=== PATIENT | female | born 1985 | race Caucasian/White ===

== ENCOUNTER 2018-10-20 10:07 | Outpatient (CLI) | payer BC ==
[2018-10-20 17:54] LABS: MUDS CUTOFF CONCENTRATIONS CUTOFF CONC BELOW:
[2018-10-20 18:10] LABS: AMPHETAMINE SCREEN,URINE NEGATIVE (NEGATIVE); BENZODIAZEPINES SCREEN, URINE NEGATIVE (NEGATIVE); COCAINE SCREEN URINE NEGATIVE (NEGATIVE); METHADONE SCREEN, URINE NEGATIVE (NEGATIVE); METHAMPHETAMINES SCREEN, URINE NEGATIVE (NEGATIVE); OPIATE SCREEN, URINE NEGATIVE (NEGATIVE); OXYCODONE SCREEN, URINE NEGATIVE (NEGATIVE); PROPOXYPHENE SCREEN, URINE NEGATIVE (NEGATIVE); TRICYCLIC ANTIDEPRESSANT,URINE NEGATIVE (NEGATIVE)
== END 2018-10-20 10:08 | disposition home or self-care (01) ==
LOC: LAB.R 10:07
PROVIDERS: ATTEND Registered Nurse
DX: Z33.1 Pregnant state, incidental (principal)
CPT/HCPCS: 80306

== ENCOUNTER 2018-10-20 10:53 | Outpatient (CLI) | payer BC ==
[2018-10-20 12:31] LABS: HGB - HEMOGLOBIN 12.1 g/dL (12.0-16.0); MEAN CORPUSCULAR HGB CONC 35.3 g/dL (32.0-36.0); MEAN CORPUSCULAR VOLUME 87.7 fL (81.0-99.0); RED BLOOD COUNT 3.89 10^6/uL (4.20-5.40); RED CELL DISTRIBUTION WIDTH 12.9 % (12.0-15.0); WHITE BLOOD COUNT 6.2 x10^3/uL (4.8-10.8)
[2018-10-21 11:16] LABS: HEPATITIS C ANTIBODY NON-REACTIVE (NON-REACTIVE)
== END 2018-10-20 10:54 | disposition home or self-care (01) ==
LOC: LAB 10:53
PROVIDERS: ATTEND Registered Nurse
DX: Z33.1 Pregnant state, incidental (principal)
CPT/HCPCS: 36415; 80306; 82950; 85027; 86803; 86850

== ENCOUNTER 2018-11-13 14:16 | Outpatient (CLI) | payer BC ==
--- NOTE | 2018-11-14 15:33 | Ultrasound Report ---
Reason: Procedure Date: 11/13/2018 Accession Number: [id number] / [id number] Procedure: US - OB Detailed Eval CPT Code: FULL RESULT: EXAM: COMPLETE OBSTETRICAL ULTRASOUND EXAM DATE: 11/13/2018 04:05 PM. CLINICAL HISTORY: anatomic survey. COMPARISON: None. TECHNIQUE: Real-time sonographic evaluation of the fetus performed by the director of diagnostic imaging. Multiple risk control field representative static images were saved for review. DATING: Established EGA 30 weeks 5 days with ASOTN 01/17/2019 based on patient's stated ASTON. EGA 32 weeks 5 days with ASTON 01/03/2019 based on the current ultrasound. GENERAL EVALUATION Darling . Cardiac activity: 126 bpm. movement: Visualized. Presentation: Cephalic. Placenta: Posterior fundal position. No evidence for previa. Umbilical cord: 3 vessel cord. Central placental cord origin. Amniotic fluid: JENN 15.8 cm, normal. MVP 4.8 cm. BIOMETRY Bi-Parietal Diameter (BPD): 8.2 cm, 32 weeks 6 days Head Circumference (HC): 30.7 cm, 34 weeks 1 day Abdominal Circumference (AC): 28.3 cm, 32 weeks 2 days Femur Length (FL): 6.2 cm, 31 weeks 6 days Estimated Weight: 1981 g, 74% percentile for 30 weeks 5 days. ANATOMY The intracranial structures, profile, face/nose/lips, spine, 4 chamber heart and outflow tracts, stomach, abdominal wall and cord insertion, diaphragm, kidneys, bladder, and extremities were visualized and demonstrate no abnormality. MATERNAL STRUCTURES Uterus: Unremarkable. Cervix: Long and closed. Transabdominal length 4.8 cm. Right ovary/adnexa: Unremarkable. Left ovary/adnexa: Unremarkable. Free fluid: None. IMPRESSION: 1. Darling live intrauterine with gestational age 30 weeks 5 days based on patient stated ASTON of 01/17/2019. 2. Estimated weight is within expected limits for assigned dating. 3. Normal anatomic survey. No anatomic abnormalities are detected at this time. RADIA ADDENDUM: 11/15/18 12:00 Corrected Impression: 1. Darling live intrauterine with gestational age 30 weeks 5 days based on patient stated ASTON of 01/17/2019. 2. Estimated weight is 1981 g, 74% for stated ASTON. 3. Normal anatomic survey. No anatomic abnormalities are detected at this time.
== END 2018-11-13 14:17 | disposition home or self-care (01) ==
LOC: DI 14:16
PROVIDERS: ATTEND Registered Nurse
DX: Z36.89 Encounter for other specified antenatal screening (principal); Z3A.30 30 weeks gestation of pregnancy
CPT/HCPCS: 76811

== ENCOUNTER 2018-12-22 08:00 | Outpatient (CLI) | payer BC | END 2018-12-22 23:59 | disposition home or self-care (01) | LOC: LAB.R 08:00 | PROVIDERS: ATTEND Nurse Practitioner Obstetrics & Gynecology | DX: Z36.85 Encounter for antenatal screening for Streptococcus B (principal); Z36.89 Encounter for other specified antenatal screening | CPT/HCPCS: 87491; 87591; 87797 ==

== ENCOUNTER 2019-01-16 12:18 | Inpatient (IN) | payer BC ==
[2019-01-16] MEDS ORDERED: SODIUM CHLORIDE FLUSH 0.9% 10 ML SYRINGE ONE (12:35)
[2019-01-16] MEDS ORDERED: ONDANSETRON 4 MG/2 ML VIAL IVP PRN (13:15)
[2019-01-16] MEDS ORDERED: SODIUM CHLORIDE FLUSH 0.9% 10 ML SYRINGE IVP PRN (13:15)
--- NOTE | 2019-01-16 13:29 | HISTORY & PHYSICAL EXAMINATION ---
Admit History - Visit Reason Visit Reason: Contractions - : 3 Parity: 2 Premature: 0 Ectopic: 0 : 0 Care: positive: [facility] Risk/History: positive: None Complications This : positive: None Smoking Status: Never smoker - Mother's Labs Mother's Blood Type: positive: O Mother's RH: positive: Positive GBS: positive: Group B Step Negative Rubella Status: positive: Immune Review of Systems - Constitutional Constitutional: denies: Fatigue, Fever, Chills, Malaise - Eyes Eyes: denies: Blurred vision, Spots in vision, Dipolpia - Cardiovascular Cariovascular: denies: Irregular heart rate, Palpitations, Chest pain, Edema - Respiratory Respiratory: denies: Cough, Sputum production, Wheezing - Gastrointestinal Gastrointestinal: denies: Abdominal pain, Constipation, Diarrhea, Change in bowel habits, Nausea, Vomiting - Genitourinary Genitourinary: denies: Dysuria - Integumentary Integumentary: denies: Rash, Pruritis - Psychiatric Psychiatric: reports: Depression, Anxiety Physical - Abdominal Exam Contraction Frequency (min/apart): 3-6 Contraction Intensity: positive: Mild Uterine Resting Tone: positive: Soft - Monitoring Strip Review: positive: Category I - Presentation Presentation: positive: Vertex - Vaginal Exam Membranes: positive: Membranes intact - Speculum Exam Speculum Exam Performed: positive: No Plan for Labor - Plan For Labor I expect patient to be DC'd or transferred within 96 hours.: Yes Plan for Labor: HPI: This 33yo @ 39.6wks gestation by 6wk U/S presented on 01/16/2019 with c/o contractions and was found to be in an early labor pattern. She reports uncomfortable uterine contractions over the past couple of days and lives in [place]. She is hoping to receive an epidural for pain management somewhat early in her process and she requests AROM for augmentation of labor. She denies VB or Lof. Reports +FM. Denies further concerns or complaints at this time. She became following displaced paragard IUD and subsequent laproscopic surgery to remove her IUD. At that time she requested BSO for sterilization. She found out she was at the end of April and her ASTON confirmed she had been at the time of her surgery. Experienced progressively worsening incontinence throughout her which is likely related to having her children so close together. She reports significant anxiety and depression s/p delivery of her other children. Sertraline declined at 28 wks - pt does desires to initiate immediately . Her has also been complicated by pubic symphyseal dysfunction for which she has been seen by physical therapist. Dating Criteria: LMP 11/01/2016 First ultrasound @ 6wks - agrees OB History: G1: 11/23/2015 viable female 41wks G2: 08/23/2017 3988 gm at 38.6wks. G3: Current PMHx: Anxiety, depression Surgical Hx: Salpingectomy 2017 Social Hx: Never smoker, no ETOH or IVDA. Joce Family Hx: Depression - mother; Heart disease maternal grandmother labs: O positive, antibody negative 1 hour GTT 88. HgbA1C 4.9, TSH 2.27 Rubella immune VDRL negative Tox NR, CT neg Hgb 13.0; Hcg 41.1 UTOX neg 28wk labs: Hgb 12.1; Hct 34.1; PLT 185 1 hour GTT 93 Hep C non-reactive 36wk labs: GBS negative GC/CT negative Immunizations: Tdap 10/20/19 Influenza 10/20/2019 Ultrasounds: Initial ultrasound at 6wks gestation c/w LMP dating 11/13/2019 FAS WNL. Posterior fundal position. No evidence of previa. 3VC. JENN WNL. Size c/w dating Physical Exam: Normocephalic, atraumatic Heart RRR w/o M/G/R Lungs CTAB Abdomen gravid, soft, and nontender. EFW 3400g FHR baseline 135, moderate variablity, + accels, no decels Contractions palpate mild every 6-9 minutes with soft resting tone. SVE 5/80/-1, posterior, soft, vertex. BOW intact upon SVE, AROM occurred at 1325 and was noted to be a moderate amount of clear fluid Bilateral LE's no edema. Mood is good. Eager to meet baby. Assessment: 33yo @ 39.6wks gestation by L=6wk U/S GBS negative Early labor AROM @ 1325 for augmentation FHT Category I Plan: Continuous monitoring Expectant management following AROM and will repeat SVE in 6 hours to ensure cervical change or sooner PRN. Epidural per maternal request and pt does desire an epidural. Anticipate spontaneous vaginal delivery.
[2019-01-16 13:46] LABS: BASOPHILS % (AUTO) 0.5 %; EOSINOPHILS # (AUTO) 0.1 10^3/uL (0.0-0.7); HGB - HEMOGLOBIN 12.7 g/dL (12.0-16.0); LYMPHOCYTES # (AUTO) 1.2 10^3/uL (1.5-3.5); MEAN CORPUSCULAR HEMOGLOBIN 29.2 pg (27.0-31.0); MEAN PLATELET VOLUME 9.1 fL (7.9-10.8); MONOCYTES # (AUTO) 0.5 10^3/uL (0.0-1.0); MONOCYTES % (AUTO) 7.9 %; NEUTROPHILS % (AUTO) 72.6 %; PLT - PLATELET COUNT 167 10^3/uL (130-450); RED BLOOD COUNT 4.36 10^6/uL (4.20-5.40); RED CELL DISTRIBUTION WIDTH 13.3 % (12.0-15.0); WHITE BLOOD COUNT 6.9 x10^3/uL (4.8-10.8)
[2019-01-16] MEDS ORDERED: OXYTOCIN/SODIUM CHLORIDE 500 ML IV SCH (14:00)
[2019-01-16] MEDS ORDERED: LIDOCAINE-MPF 1% 30 ML VIAL ONE (15:10)
[2019-01-16] MEDS ORDERED: miSOPROStol 200 MCG TABLET ONE (15:10)
[2019-01-16] MEDS ORDERED: SODIUM CHLORIDE FLUSH 0.9% 10 ML SYRINGE IVP SCH (17:00)
--- NOTE | 2019-01-16 19:06 | ANESTHESIA ---
Pre-Anesthesia VS, & Labs - Diagnosis active labor - Procedure labor epidural Height 5 ft 8 in Weight (kg) 79.379 kg - NPO Other (1730) - Is Patient ?: Yes - Lab Results Current Lab Results: Laboratory Tests 01/16/19 14:13: Blood Type O POSITIVE, Antibody Screen NEGATIVE 01/16/19 13:05: Blood Type Recheck O POSITIVE 01/16/19 13:05: WBC 6.9, RBC 4.36, Hgb 12.7, Hct 37.5, MCV 86.0, MCH 29.2, MCHC 34.0, RDW 13.3, Plt Count 167, MPV 9.1, Neut # (Auto) 5.0, Lymph # (Auto) 1.2 L, [place]win # (Auto) 0.5, Eos # (Auto) 0.1, Baso # (Auto) 0.0, Absolute Nucleated RBC 0.00, Nucleated RBC % 0.0 Fish Bones: 01/16/19 13:05 Home Medications and Allergies Active Medications Acetaminophen (Tylenol) 650 mg PO Q6H FRANKLYN Lactated Ringer's (Lr) 1,000 mls @ 150 mls/hr IV .Q6H40M FRANKLYN Oxytocin/Sodium Chloride (Pitocin/Sodium Chloride) 500 mls @ 1 mls/hr IV TITR FRANKLYN; Protocol Ondansetron HCl (Zofran Inj) 4 mg IVP Q4H PRN PRN Reason: Nausea / Vomiting Sodium Chloride (Normal Saline Flush 0.9%) 10 ml IVP PRN PRN PRN Reason: NEEDED PER PROVIDER ORDERS Sodium Chloride (Normal Saline Flush 0.9%) 10 ml IVP 0100,0900,1700 [facility] Allergies/Adverse Reactions: Allergies Allergy/AdvReac Type Severity Reaction Status Date / Time No Known Drug Allergies Allergy Verified 01/16/19 16:08 Anes History & Medical History - Anesthetic History Anesthesia Complications: reports: Post-Operative Nausea/Vomiting Family history of Anesthesia Complications: Denies Family history of Malignant Hyperthermia: Denies - Medical History Smoking Status: Never smoker - Obstetrical History : 3 Parity: 2 Events: positive: None Complications: positive: None Exam General: Alert Dental: Loose/Frag Mouth Openin Fingerbreadth Neck Mobility: Normal Mallampati classification: II Thyromental Distance: greater than 6 cm Respiratory: Lungs clear, Normal breath sounds, No respiratory distress, No accessory muscle use Cardiovascular: Regular rate, Normal S1, Normal S2, No murmurs Plan Anesthesia Type: Epidural Consent for Procedure(s) Verified and Reviewed: Yes Code Status: Attempt Resuscitation ASA classification: 2-Mild systemic disease Is this case an emergency?: No
[2019-01-16] MEDS: LACTATED RINGERS 1,000 ML IV SCH ×2 (19:11→20:16)
[2019-01-16] MEDS ORDERED: LIDOCAINE-MPF 1% 2 ML AMP SUBQ SCH (19:20)
[2019-01-16] MEDS ORDERED: LIDOCAINE 1% 2 ML VIAL SUBQ SCH (19:20)
[2019-01-16] MEDS ORDERED: fent/BUPIV 2 MCG/0.125% 250 ML EP ONE (19:49)
[2019-01-16] MEDS ORDERED: ROPIVACAINE 0.2% PF 20 ML AMPULE ONE (19:51)
[2019-01-16] MEDS: ACETAMINOPHEN 325 MG TABLET PO SCH (20:13)
--- NOTE | 2019-01-16 21:14 | DELIVERY NOTE ---
Delivery Note - Labor Labor: positive: Spontaneous, Augmented by ARM - Infant Delivery Method Delivery Method: positive: Spontaneous vaginal delivery - Presentation Presentation: positive: Vertex, ROT - right occiput transverse - Nuchal Cord Nuchal Cord: positive: None - Amniotic Fluid Description Amniotic Fluid Description: positive: Clear - Episiotomy Type Episiotomy Type: positive: None - Laceration Laceration: positive: None - Delivery Outcome Delivery Outcome: positive: Livebirth - : positive: Placed in direct skin contact with mother, Bulb syringe, Stimulated, Warmed, [place] used [place] sex: positive: Male - Cord Cord: positive: 3 vessels - Placenta Placenta: positive: Intact, Spontaneous - Estimated Blood Loss Estimated Blood Loss (in cc): 300 - Post Delivery Events Post Delivery Events: positive: No post delivery events - Delivery Comments (Free Text/Narrative) Delivery Comments (Free Text/Narrative): Labor: This 33yo @ 39.6wks gestation by L=6wk U/S presented at approximately 1200 on 01/16/2019 with c/o uncomfortable contractions. She was noted to be 5/80/-1, and vertex. Her labor was augmented with AROM which occurr ed at 1325 and was noted to be a moderate amount of clear fluid. FHR pattern demonstrated a Category I tracing throughout. Epidural per maternal request. Normal labor course. Patient experienced spontaneous urge to push at 2024 and was noted to have slight anterior lip which was easily reduced at 2025. Total first stage duration of 7 hours. Normal of viable male infant at 2041 on 01/16/2019. Total second stage duration of 16 minutes. No nuchal cord. 's 9 and 9 at 1 and 5 minutes respectively. The was placed on maternal abdomen, stimulated, dried, and placed skin to skin. Pitocin administered via IV for hemostasis. The umbilical cord was allowed to stop pulsating at which time it was doubly clamped by CNM and cut by FOB. Cord blood was obtained. Placenta delivered spontaneously and intact at 2048. 3VC. ELB 300mL. Uterine fundus firm and there is no excessive bleeding. The perineum, vagina, and cervix were inspected and found to be intact. initiated. Family bonding well. Both mother and baby were left in stable condition.
[2019-01-16] MEDS ORDERED: WITCH HAZEL/GLYCERIN 1 EACH MED..PAD TOP PRN (21:16)
[2019-01-16] MEDS ORDERED: HYDROCORTISONE 1% CREAM 28 GM TUBE PR PRN (21:16)
[2019-01-16] MEDS: IBUPROFEN 800 MG TABLET PO SCH (21:38)
[2019-01-16 22:02] LABS: THYROID STIMULATING HORMONE 2.32 uIU/mL (0.34-5.60)
[2019-01-16 22:05] LABS: FREE T4 (FREE THYROXINE) 0.89 ng/dL (0.58-1.64)
[2019-01-17] MEDS: ACETAMINOPHEN 325 MG TABLET PO SCH ×4 (02:25→22:03)
--- NOTE | 2019-01-17 08:30 | PROVIDER PROGRESS NOTE ---
Subjective - Subjective Subjective: S: Bonding well with baby. without difficulty. Pain well controlled with oral medications. Reports improvement in headache which was noted during placement of epidural. Bleeding decreased and is moderate. Feeling tired but overall well. O: BP 124/56, HR 69, T 36.7, RR 16 Heart RRR w/o M/G/R, lungs CTAB, abdomen soft and nontender with fundus firm at U-1. Bilateral LE's no edema. Perineum intact. Mood is good. A: 33yo -->P3 PPD#1 s/p TSVD of viable male Perineum intact . P: Continue routine care and medications. Contact special education administrator anesthesia provider to pull her epidural and evaluate need for blood patch if needed. Pt will be 24 hours at 2042 this evening. She thinks she plans to stay the night tonight and plan for discharge home tomorrow. Will discharge tonight at 24hrs if patient desires. Pt verbalized understanding and agrees to above plan. She denies further questions or concerns at this time. Objective - Vital Signs/Intake & Output Vital Signs: Vital Signs x48h Temp Pulse Resp BP Pulse Ox 01/17/19 08:13 36.7 C 69 16 124/56 L 100 01/17/19 06:23 36.6 C 74 16 111/50 L 99 01/17/19 02:20 36.6 C 74 16 117/62 98 Intake & Output: Intake & Output 01/14/19 01/15/19 01/16/19 01/17/19 23:59 23:59 23:59 23:59 Intake Total 2465.733 Output Total 300 1 Balance 2165.733 -1 - Lab Results Fish Bones: 01/16/19 13:05 Other Labs: Lab Results x24hrs 01/16/19 01/16/19 01/16/19 Range/Units 14:13 14:13 13:05 WBC (4.8-10.8) x10^3/uL RBC (4.20-5.40) 10^6/uL Hgb (12.0-16.0) g/dL Hct (37.0-47.0) % MCV (81.0-99.0) fL MCH (27.0-31.0) pg MCHC (32.0-36.0) g/dL RDW (12.0-15.0) % Plt Count (130-450) 10^3/uL MPV (7.9-10.8) fL Neut # (Auto) (1.5-6.6) 10^3/uL Lymph # (Auto) (1.5-3.5) 10^3/uL [place] # (Auto) (0.0-1.0) 10^3/uL Eos # (Auto) (0.0-0.7) 10^3/uL Baso # (Auto) (0.0-0.1) 10^3/uL Absolute Nucleated RBC x10^3/uL Nucleated RBC % /100WBC TSH 2.32 (0.34-5.60) uIU/mL Free T4 0.89 (0.58-1.64) ng/dL Blood Type O POSITIVE Blood Type Recheck O POSITIVE Antibody Screen NEGATIVE 01/16/19 Range/Units 13:05 WBC 6.9 (4.8-10.8) x10^3/uL RBC 4.36 (4.20-5.40) 10^6/uL Hgb 12.7 (12.0-16.0) g/dL Hct 37.5 (37.0-47.0) % MCV 86.0 (81.0-99.0) fL MCH 29.2 (27.0-31.0) pg MCHC 34.0 (32.0-36.0) g/dL RDW 13.3 (12.0-15.0) % Plt Count 167 (130-450) 10^3/uL MPV 9.1 (7.9-10.8) fL Neut # (Auto) 5.0 (1.5-6.6) 10^3/uL Lymph # (Auto) 1.2 L (1.5-3.5) 10^3/uL [place] # (Auto) 0.5 (0.0-1.0) 10^3/uL Eos # (Auto) 0.1 (0.0-0.7) 10^3/uL Baso # (Auto) 0.0 (0.0-0.1) 10^3/uL Absolute Nucleated RBC 0.00 x10^3/uL Nucleated RBC % 0.0 /100WBC TSH (0.34-5.60) uIU/mL Free T4 (0.58-1.64) ng/dL Blood Type Blood Type Recheck Antibody Screen
[2019-01-17] MEDS: IBUPROFEN 800 MG TABLET PO SCH ×2 (10:45→22:03)
[2019-01-17] MEDS: DOCUSATE SODIUM 100 MG CAPSULE PO SCH (10:46)
--- NOTE | 2019-01-18 07:19 | Discharge Plan ---
Discharge Plan Disposition: 01 Home, Self Care Condition: Good Diet: Regular Shower Restrictions: No Driving Restrictions: No Weight Bearing: Full Weight No Smoking: If you smoke, Please STOP! Call for help. Follow-up with: Claudia Garcia CNM, ARNP [Provider Admit Priv/Credential] -
--- NOTE | 2019-01-18 07:26 | PROVIDER PROGRESS NOTE ---
Subjective - Subjective Subjective: FINAL PROGRESS NOTE: S: Bonding well with baby. without difficulty. Pain well controlled and has refused oral medications throughout the night but her pain has remained well managed. Has some lingering back discomfort for which she is now requesting ibuprofen. Bleeding decreased and is light. O: BP 110/55, T 36.6, HR 79, RR 16 Heart RRR w/o M/G/R, lungs CTAB, abdomen soft and nontender with fundus firm at U-2, Perineum intact, bilateral LE's no edema. A: 33yo -->P3 PPD#2 s/p TSVD of viable male infant P: Reviewed self care and warning s/sx. Advised continuation of PNV while . Continue ibuprofen and tylenol OTC for pain management as needed. F/u with CNMs at [facility] in 1 week for support visit and in 3 weeks for routine visit. Has bilateral tubal ligation for contraception. Discharge home today on PPD#2. Pt verbalized understanding and agrees to above plan. She denies further questions or concerns at this time. Objective - Vital Signs/Intake & Output Vital Signs: Vital Signs x48h Temp Pulse Resp BP Pulse Ox 01/18/19 01:37 36.6 C 79 16 110/55 L 99 Intake & Output: Intake & Output 01/15/19 01/16/19 01/17/19 01/18/19 23:59 23:59 23:59 23:59 Intake Total 2465.733 750 600 Output Total 300 1 Balance 2165.733 749 600 - Lab Results Fish Bones: 01/16/19 13:05
[2019-01-18] MEDS: IBUPROFEN 800 MG TABLET PO SCH ×3 (07:36→07:59)
[2019-01-18 07:51] VITALS: BP 122/68
--- NOTE | 2019-01-18 07:53 | DISCHARGE SUMMARY ---
Physician: CHATA Stevens DATE OF ADMISSION: 01/16/2019 DATE OF DISCHARGE: 01/18/2019 DIAGNOSES ON ADMISSION 1. A 33-year-old G3, P2-0-0-2 at 39.6 weeks gestation. 2. Early labor. 3. Group B streptococcus negative. DIAGNOSES ON DISCHARGE 1. A 33-year-old G3, P3-0-0-3, status post term spontaneous vaginal delivery on 01/16/2019. 2. Intact perineum. 3. . 4. Normal recovery. BRIEF HISTORY: Patient is a patient of [facility] who presented on 01/16/2019, with complaints of contractions and was found to be in an early labor pattern. Her cervix was noted to b e 5 cm dilated, 80% effaced, -1 position, posterior, soft and vertex. Augmentation of labor with ODETTE M occurred at 1325 and was noted to be a moderate amount of clear fluid. heart rate pattern de monstrated a category 1 tracing throughout. Epidural per maternal request. Normal labor course. Sh e progressed to spontaneously deliver a viable male on 01/16/2019 at 2041. Apgars were 9 and 9 at one and five minutes respectively. The perineum, vagina and cervix were inspected and found to be intact. EBL was 300 mL. She has been doing well in her course. She is ambulating and tolerating a regular diet. She is urinating without difficulty and her lochia is normal. She will be discharged home today on p ostpartum day #2 with precautions to call if she has any worsening fevers, chills, abdominal pain, in creased vaginal bleeding or foul smelling vaginal lochia. She was advised to continue taking her pre vitamin while . She was also advised to continue taking ibuprofen and Tylenol ove [id number] for pain management if needed. She intends to follow up with myself at [facility] in 1 week for a support visit, and in 3 weeks for a routine visit. She verbalized understanding and agrees to the above plan. She denies further questions or concerns at this time. TD: 01/18/2019 07:37
[2019-01-18] MEDS: DOCUSATE SODIUM 100 MG CAPSULE PO SCH (07:58)
[2019-01-18] MEDS: ACETAMINOPHEN 325 MG TABLET PO SCH ×2 (07:58→07:59)
--- NOTE | 2019-01-18 11:22 | ANESTHESIA POST OP EVALUATION ---
Anesthesia Post Eval - Other Details/Therapies Other Details/Therapies: Patient had a positive dural puncture 01/16. Today she is upright and denies any headache or symptoms of post dural puncture headache. Instructed patient to return if symptoms of headache appeared. She reported the epidural worked well and no residual effects.
--- NOTE | 2019-01-18 13:26 | Labor Flowsheet ---
Labor Flowsheet Datetime Report Generated by CPN: 01/18/2019 13:25 Datetime: 01/17/2019 08:14 VITAL SIGNS NBP Sys/Jeanette/Mean (mmHg): 124 : 56 : 70 Pulse: 69 LaborFlag: Labor Datetime: 01/17/2019 02:19 SpO2 (%): 99 Datetime: 01/16/2019 20:49 Stage 2 Comments: Placenta delivered 219 @ 2049. Intact, routine discard Datetime: 01/16/2019 20:42 UTERINE ACTIVITY Monitor Mode: External Frequency (min): 1.5-2 Quality: Strong Duration (sec): 55-120 Pattern: Normal: <= 5 Contractions in 10 Minutes Resting Tone (Palpate): Relaxed ASSESSMENT A Monitor Mode: Telemetry FHR Baseline Rate : 130 Variability: Moderate 6-25 bpm Accelerations: 15X15 Decelerations: Early Category: Category I Oxygen Method: Room Air STAGE 2 Pushing: Coached on Pushing; Urge to Push Pushing Position: Pushing with Contractions; Pushing Lithotomy Pushing Progress: Descent with Pushing Datetime: 01/16/2019 20:26 VAGINAL EXAM Dilatation (cm): 10.0 Effacement (%): 100 Exam by: Radha CMM Vaginal Bleeding: Normal Show Cervix, Consistency: Soft Cervix, Position: Anterior Vaginal Exam Comments: complete Datetime: 01/16/2019 20:03 Temperature (C): 36.6 Epidural Procedure Other: Single Dose Datetime: 01/16/2019 20:02 PAIN Pain Scale: 8 Pain Presence: Intermittent Pain Type: Contraction Pain Location: Abdomen Pain Relief Measures: Epidural Given; Comfort Measures Pain Coping: Breathing Through Contractions Pain Assessment Comments: 7-8 pain Comfort Measures: Breathing/Relaxation Datetime: 01/16/2019 20:01 Monitor Interventions for FHR: Ultrasound Adjusted Datetime: 01/16/2019 19:49 PATIENT CARE IV/Blood Work: IV Bolus Started Datetime: 01/16/2019 19:33 Epidural Procedure: Test Dose Datetime: 01/16/2019 19:30 Comments: FHR not tracing well, tracing maternal HR during epidural placement Datetime: 01/16/2019 19:29 Patient Care Comments: This RN took over care ANESTHESIA Anesthesia Plans: Epidural Datetime: 01/16/2019 19:28 Patient Position/Activity: Right Tilt; Low Fowlers Anesthesia Comments: Epidural placed per Dr Walter. [address] epidural with 1st stick, 2nd stick was a wet tap, 3rd attempt successful, but instant headache to left side of head to the base of the skull. Test dose of epidural negative. Cath taped in place and Kelley positioned w ith a right tilt. 2nd 500 mls bolus started per verbal order from Dr Walter to see if it helps with patient's headache. Datetime: 01/16/2019 19:09 Epidural Positioning: Sitting Datetime: 01/16/2019 19:05 PROCEDURE TIME OUT Procedure Verify: Correct Patient Identity; Accurate Procedure Consent Form; Agreement on Procedure to be Done; Correct Patient Position Datetime: 01/16/2019 19:00 Provider Notified (Name): Claudia Radha CNM Communication Comments: Notified that patient is feeling pressure and is 7-8 cm Datetime: 01/16/2019 18:59 Station: 0 Datetime: 01/16/2019 18:56 Respirations: 18 Datetime: 01/16/2019 18:46 I/O Interventions: Up to BR Datetime: 01/16/2019 18:40 COMMUNICATION Communication: Call/Page Placed to Provider Datetime: 01/16/2019 18:07 Hygiene: Underpad Changed; Peripad Changed Datetime: 01/16/2019 14:23 Stage of : Labor
== END 2019-01-18 12:45 | disposition home or self-care (01) | DRG 807 ==
LOC: WFO 12:18 → FBP 12:20 → WFO 13:26 → OBSVTOIN 19:05 → FBP 01-17 14:45
PROVIDERS: ADMIT Nurse Practitioner Obstetrics & Gynecology; ATTEND Nurse Practitioner Obstetrics & Gynecology
PROC: 10E0XZZ Delivery of Products of Conception, External Approach (ICD-10-PCS; principal; 2019-01-16)
PROC: 10907ZC Drainage of Amniotic Fluid, Therapeutic from Products of Conception, Via Natural or Artificial Opening (ICD-10-PCS; 2019-01-16)
DX: O99.344 Other mental disorders complicating childbirth (principal); Z37.0 Single live birth; F41.9 Anxiety disorder, unspecified; F32.9 Major depressive disorder, single episode, unspecified; O26.72 Subluxation of symphysis (pubis) in childbirth; O99.89 Other specified diseases and conditions complicating pregnancy, childbirth and the puerperium; R32 Unspecified urinary incontinence; Z3A.39 39 weeks gestation of pregnancy
CPT/HCPCS: 84439; 84443; 85025; 86850; 86900; 86901

== ENCOUNTER 2019-11-25 11:02 | Emergency (ER) | payer BC ==
[2019-11-25 11:28] VITALS: BP 141/100
--- NOTE | 2019-11-25 12:41 | ED Physician Documentation ---
PD HPI SKIN - Stated complaint Stated Complaint: RASH - Chief complaint Chief Complaint: Wound - History obtained from History obtained from: Patient (3-day history of painful rash on the right side of the neck with fatigue and a swollen postauricular lymph node on the right.) Review of Systems Constitutional: reports: Myalgias, Fatigue. denies: Fever, Chills Ears: reports: Ear pain Nose: denies: Rhinorrhea / runny nose Throat: denies: Sore throat PD PAST MEDICAL HISTORY - Present Medications Home Medications: Ambulatory Orders Medication Instructions Recorded Confirmed Valacyclovir HCl [Valtrex] 1,000 mg PO TID #30 tablet 11/25/19 predniSONE [Deltasone] 20 mg PO [id number] #21 tab 11/25/19 - Allergies Allergies/Adverse Reactions: Allergies Allergy/AdvReac Type Severity Reaction Status Date / Time No Known Drug Allergies Allergy Verified 01/16/19 16:08 - Social History Does the pt smoke?: No Smoking Status: Never smoker PD ED PE NORMAL - Vitals Vital signs reviewed: Yes - General General: Alert and oriented X 3, No acute distress - HEENT HEENT: PERRL, EOMI, Other (She has shingles on the right side of the neck with a tender swollen postauricular lymph node) - Neck Neck: Supple, no meningeal sign, No bony TTP - Neuro Neuro: Alert and oriented X 3, Normal speech Results - Vitals Vitals: Vital Signs - 24 hr 11/25/19 11:24 Temperature 37.0 C Heart Rate 99 Respiratory 16 Rate Blood Pressure 141/100 H O2 Saturation 100 Oxygen O2 Source Room air Departure - Departure Disposition: 01 Home, Self Care Clinical Impression: Herpes zoster Qualifiers: Herpes zoster complications: without complications Qualified Code(s): B02.9 - Zoster without complications Condition: Good Record reviewed to determine appropriate education?: Yes Instructions: ED Shingles Prescriptions: predniSONE [Deltasone] 20 mg PO [id number] #21 tab Valacyclovir HCl [Valtrex] 1,000 mg PO TID #30 tablet Comments: Your blood pressure was elevated today on check into the emergency department. This does not mean that you have hypertension, it is a common phenomenon to come to the emergency department and have elevated blood pressure. I recommend that you see your primary care physician within the week to have it rechecked when you are feeling better.
== END 2019-11-25 12:46 | disposition home or self-care (01) ==
LOC: ED 11:02
DX: B02.9 Zoster without complications (principal); R03.0 Elevated blood-pressure reading, without diagnosis of hypertension
CPT/HCPCS: 99282; 99284